=== PATIENT | male | born 1960 | race Caucasian/White ===

== ENCOUNTER 2021-08-11 12:37 | Day surgery (SDC) | payer BC ==
[~2021-08-11 12:37] MED LIST: Midazolam 1 MG/ML 2 ML SDV ONE; Propofol 200 MG/20 ML SDV ONE
[2021-08-11] MEDS ORDERED: Lactated Ringers 1,000 ML IV SCH (12:45)
[2021-08-11] MEDS ORDERED: Sodium Chloride 0.9% 10 ML Syringe FLUSH PRN (12:45)
[2021-08-11] MEDS ORDERED: Propofol 200 MG/20 ML SDV ONE ×2 (13:20→13:24)
[2021-08-11] MEDS ORDERED: Midazolam 1 MG/ML 2 ML SDV ONE (13:24)
--- NOTE | 2021-08-11 13:29 | PCM.PN ---
- General Info Date of Service: 08/11/21 - Review of Systems Systems Review Comment:: 61-year-old male referred for colonoscopy. This is his initial screening exam. He denies any recent rectal bleeding or change in bowel pattern. He denies any known family history of colon cancer. His recent history and physical is reviewed and no significant changes are noted. I have discussed the proposed colonoscopy with the patient. Risks such as but not limited to bleeding and GI injury reviewed. He agrees to proceed. - Patient Data Vitals - Most Recent: Last Vital Signs Temp 98.9 F 08/11/21 13:09 Pulse 85 08/11/21 13:09 Resp 20 08/11/21 13:09 BP 133/81 08/11/21 13:09 Pulse Ox 96 08/11/21 13:09 Weight - Most Recent: 136.078 kg Med Orders - Current: Current Medications Lactated Ringer's (Ringers, Lactated) 1,000 mls @ 125 mls/hr IV ASDIRECTED ILIA Last Admin: 08/11/21 13:06 Dose: 125 mls/hr Documented by: Sodium Chloride (Sodium Chloride 0.9% 10 Ml Syringe) 10 ml FLUSH ASDIRECTED PRN PRN Reason: Keep Vein Open Discontinued Medications Midazolam HCl (Midazolam 1 Mg/Ml 2 Ml Sdv) Confirm Administered Dose 2 mg .ROUTE .STK-MED ONE Stop: 08/11/21 08:18 Propofol (Propofol 200 Mg/20 Ml Sdv) Confirm Administered Dose 200 mg .ROUTE .STK-MED ONE Stop: 08/11/21 08:19 Propofol (Propofol 200 Mg/20 Ml Sdv) Confirm Administered Dose 200 mg .ROUTE .STK-MED ONE Stop: 08/11/21 13:21 Sepsis Event Note - Focused Exam Vital Signs: Vital Signs Temp Pulse Resp BP Pulse Ox 08/11/21 13:09 98.9 F 85 20 133/81 96 - Problem List Review Problem List Initiated/Reviewed/Updated: Yes - My Orders Last 24 Hours: My Active Orders 08/11/21 12:45 Patient Status [ADT] Routine Peripheral IV Care [RC] . DIRECTED Verify Patient Consent Obtain [RC] ASDIRECTED Lactated Ringers [Ringers, Lactated] 1,000 ml IV ASDIRECTED Sodium Chloride 0.9% [Saline Flush] 10 ml FLUSH ASDIRECTED PRN Peripheral IV Insertion Adult [OM.PC] Routine - Assessment Assessment:: Colon cancer screening - Plan Plan:: Colonoscopy
--- NOTE | 2021-08-11 13:57 | PCM.OPNOTE ---
- General Post-Op/Procedure Note Date of Surgery/Procedure: 08/11/21 Operative Procedure(s): Colonoscopy Findings: Moderate diverticulosis in the sigmoid colon Pre Op Diagnosis: Colon cancer screening Post-Op Diagnosis: Sigmoid diverticulosis Anesthesia Technique: MAC Primary Surgeon: Andrés Jimenez Pathology: None EBL in mLs: 0 Complications: None Condition: Good
--- NOTE | 2021-08-11 15:08 | OR ---
Date of Procedure: 08/11/2021 PREOPERATIVE DIAGNOSIS: Colon cancer screening. POSTOPERATIVE DIAGNOSIS: Sigmoid diverticulosis. OPERATION PERFORMED: Colonoscopy. INDICATIONS FOR SURGERY: This 61-year-old male was referred for his initial screening colonoscopy. FINDINGS: No polyps were seen on today's exam. The patient did have a moderate amount of diverticulosis in the sigmoid region which was uncomplicated. The colon and rectum otherwise appeared normal. DESCRIPTION OF PROCEDURE: The patient was taken to the operating room. He was given intravenous sedation and with him in the left lateral decubitus position, digital rectal exam was performed showing no rectal masses. The Olympus colonoscope was inserted into the rectum. Retroflexed examination of the rectal canal was performed. The scope was then carefully advanced through the entire length of the colon until the cecum was reached. Cecal acquisition was confirmed by noting the normal internal cecal anatomy including the appendiceal orifice and the ileocecal valve. The light was also noted to transilluminate the abdominal wall in the right lower quadrant. After examining the cecum, the scope was slowly withdrawn, sequentially re-examining the colonic segments until the entire colon and rectum had been fully examined. The scope was removed and the patient was taken from the operating room in satisfactory condition. ESTIMATED BLOOD LOSS: 0. COMPLICATIONS: None. PROGNOSIS: Good. MALDONADO Jimenez MD /[id number]
== END 2021-08-11 14:35 | disposition home or self-care (01) ==
LOC: LL.SDS 12:37
PROVIDERS: ATTEND Surgery
DX: Z12.11 Encounter for screening for malignant neoplasm of colon (principal); K57.30 Diverticulosis of large intestine without perforation or abscess without bleeding; Z79.899 Other long term (current) drug therapy; Z98.890 Other specified postprocedural states
CPT/HCPCS: 45378; J2250; J2704; J7120; 00812